=== PATIENT | male | born 1995 | race Caucasian/White ===

== ENCOUNTER 2017-02-26 09:10 | Day surgery (SDC) | payer OTHER ==
[~2017-02-26 09:10] MED LIST: ALPRAZolam 0.5 MG TAB PO ONE; HYDROmorphone 1 MG/ML 1 ML SYRINGE IVP PRN
[2017-02-26 09:35] VITALS: RESP 14; TEMP 97.9
[2017-02-26 09:51] LABS: Prothrombin Time 10.4 sec (9.0-12.0)
--- NOTE | 2017-02-26 12:25 | US ---
EXAMINATION TYPE: US biopsy liver DATE OF EXAM: 02/26/2017 HISTORY: Elevated liver function tests. PROCEDURE: Maximal barrier technique was utilized. After informed consent, the skin overlying a suit able path to the liver was localized using ultrasound, the skin was prepped and draped. Ultrasound w as utilized with sterile technique. Lidocaine was used for local anesthesia. A skin garrick made with a scalpel. Under direct ultrasound guidance, an 18-gauge needle was advanced into the left lobe of th e liver and core biopsy obtained. Hemostasis was achieved. There was no immediate complication and patient remained in stable condition. Specimen submitted in formalin to Pathology. IMPRESSION: STATUS POST ULTRASOUND GUIDED CORE BIOPSY OF THE LEFT LOBE OF THE LIVER, PATHOLOGY CHRYSTAL Sevilla PERFORMED BY THE UNDERSIGNED.
[2017-02-26 16:43] VITALS: PULSE 60
[2017-02-26 16:47] VITALS: BP 123/65
== END 2017-02-26 14:30 | disposition home or self-care (01) ==
LOC: RADPROMAIN 09:10
DX: K75.81 Nonalcoholic steatohepatitis (NASH) (principal)
CPT/HCPCS: 85049; 85610; 88313; 88307; 96374; 47000; 76942; J1170

== ENCOUNTER → 2018-07-15 | Outpatient (CLI) | payer OTHER | END | disposition home or self-care (01) | LOC: LABWHC1 11:20 | PROVIDERS: ATTEND Internal Medicine Critical Care Medicine | DX: R79.89 Other specified abnormal findings of blood chemistry (principal) | CPT/HCPCS: 36415; 82103 ==